=== PATIENT | male | born 1990 | race Caucasian/White ===

== ENCOUNTER 2025-07-17 21:12 | Emergency (ER) | payer BC ==
[~2025-07-17] VITALS: Ht 177.8 cm; Wt 81.6 kg
[2025-07-17] MEDS ORDERED: Tdap Vaccine 0.5 ML SYR (Adult Vaccine) IM ONE (21:30)
[2025-07-17] MEDS ORDERED: Ondansetron Hydrochloride 4 MG TAB PO ONE (22:50)
[2025-07-17] MEDS ORDERED: CEPHALEXIN500 M1 PO (22:55)
== END 2025-07-17 22:58 | disposition home or self-care (01) ==
LOC: ED 21:12
DX: S61.412A Laceration without foreign body of left hand, initial encounter (principal); W31.89XA Contact with other specified machinery, initial encounter; Y93.89 Activity, other specified; Y92.89 Other specified places as the place of occurrence of the external cause; Y99.8 Other external cause status